=== PATIENT | male | born 1940 | race Caucasian/White ===

== ENCOUNTER 2021-07-04 12:53 | Outpatient (CLI) | payer MEDICARE, OTHER | END 2021-07-04 12:54 | disposition home or self-care (01) | LOC: CSHCT 12:53 | PROVIDERS: ATTEND Internal Medicine | DX: M54.50 Low back pain, unspecified (principal); M47.816 Spondylosis without myelopathy or radiculopathy, lumbar region | CPT/HCPCS: 72131 ==

== ENCOUNTER 2022-07-24 09:46 | Outpatient (CLI) | payer MEDICARE, OTHER | END 2022-07-24 09:47 | disposition home or self-care (01) | LOC: CSHCT 09:46 | PROVIDERS: ATTEND Psychiatry & Neurology Neurology | DX: R25.2 Cramp and spasm (principal); M54.16 Radiculopathy, lumbar region; M47.812 Spondylosis without myelopathy or radiculopathy, cervical region; M48.02 Spinal stenosis, cervical region | CPT/HCPCS: 72125; 72131 ==

== ENCOUNTER 2022-12-08 12:27 | Inpatient (IN) | payer MEDICARE, OTHER ==
[~2022-12-08 12:27] MED LIST: Iopamidol 300 61% 100 ML VIAL FS ONE
[2022-12-08] MEDS ORDERED: Ketorolac Tromethamine 30 MG/ML VIAL ONE (12:59)
[2022-12-08] MEDS ORDERED: Ondansetron PF 4 MG/2 ML Vial ONE (12:59)
[2022-12-08 13:33] LABS: ALT (SGPT) 21 U/L (8-55); AST (SGOT) 19 U/L (5-34); Albumin 4.2 g/dL (3.4-4.8); Alkaline Phosphatase 66 U/L (40-110); Anion Gap 14 mmol/L (10-20); BUN (Urea Nitrogen) 31 mg/dL (8.4-25.7); Bilirubin, Total 0.5 mg/dL (0.2-1.2); Calc. Creatinine Clearance 0 mL/min (70-130); Calcium 8.7 mg/dL (7.8-10.44); Carbon Dioxide 23 mmol/L (23-31); Chloride 107 mmol/L (98-107); Estimated GFR 61; Globulin 2.6 g/dL (2.4-3.5); Glucose 105 mg/dL (83-110); Lipase 41 U/L (8-78); Potassium 4.1 mmol/L (3.5-5.1); Protein, Total 6.8 g/dL (5.8-8.1); Sodium 140 mmol/L (136-145)
[2022-12-08 13:35] LABS: #Eosinphils 0.1 10x3/uL (0.0-0.5); #Monocytes 0.6 10x3/uL (0.0-1.1); #Neutrophils 6.5 10x3/uL (1.5-8.4); %Basophils 0.4 % (0.0-2.0); %Eosinophils 0.9 % (0.0-6.0); %Lymphocytes 10.9 % (18.0-47.0); %Monocytes 7.6 % (0.0-10.0); %Neutrophils 79.7 % (40.0-75.0); Hemoglobin 11.4 g/dL (13.5-17.5); Mean Corpuscular HGB CONC 34.1 g/dL (32.0-36.0); Mean Corpuscular Hemoglobin 33.8 pg (27.0-33.0); Mean Corpuscular Volume 99.1 fl (81.2-95.1); Mean Platelet Volume 9.7 fl (7.4-10.4); Platelet Count 211 10x3/uL (150-450); RBC Distribution Width 13.1 % (11.5-14.5); Red Blood Cell (RBC) Count 3.37 10x6/uL (4.32-5.72); White Blood Cell (WBC) Count 8.1 10x3/uL (3.5-10.5)
[2022-12-08] MEDS ORDERED: Fentanyl 100 MCG/2 ML VIAL ONE (14:40)
[2022-12-08] MEDS ORDERED: Morphine 4 MG/ML VIAL ONE (15:07)
[2022-12-08] MEDS ORDERED: Lidocaine Viscous Sol 2% 15 ml UD Cup ONE (15:23)
[2022-12-08] MEDS ORDERED: Lidocaine 1% MPF 2 ML VIAL ONE (15:23)
[2022-12-08 17:15] VITALS: BMI 23.7
[2022-12-08] MEDS: Lactated Ringer's 1,000 ML IV SCH (17:24)
[2022-12-08] MEDS: Morphine 4 MG/ML VIAL SLOW IVP PRN ×2 (18:33→22:28)
[2022-12-09] MEDS: Lactated Ringer's 1,000 ML IV SCH ×3 (01:24→16:30)
[2022-12-09 05:24] LABS: #Eosinphils 0.1 10x3/uL (0.0-0.5); #Monocytes 0.8 10x3/uL (0.0-1.1); #Neutrophils 3.7 10x3/uL (1.5-8.4); %Basophils 0.4 % (0.0-2.0); %Eosinophils 2.6 % (0.0-6.0); %Lymphocytes 14.3 % (18.0-47.0); %Monocytes 14.9 % (0.0-10.0); %Neutrophils 67.6 % (40.0-75.0); Hemoglobin 10.7 g/dL (13.5-17.5); Mean Corpuscular HGB CONC 34.2 g/dL (32.0-36.0); Mean Corpuscular Hemoglobin 33.5 pg (27.0-33.0); Mean Corpuscular Volume 98.1 fl (81.2-95.1); Mean Platelet Volume 9.9 fl (7.4-10.4); Platelet Count 212 10x3/uL (150-450); RBC Distribution Width 13.2 % (11.5-14.5); Red Blood Cell (RBC) Count 3.19 10x6/uL (4.32-5.72); White Blood Cell (WBC) Count 5.4 10x3/uL (3.5-10.5)
[2022-12-09 05:49] LABS: Anion Gap 12 mmol/L (10-20); BUN (Urea Nitrogen) 31 mg/dL (8.4-25.7); Calc. Creatinine Clearance 59 mL/min (70-130); Calcium 8.4 mg/dL (7.8-10.44); Carbon Dioxide 22 mmol/L (23-31); Chloride 108 mmol/L (98-107); Estimated GFR 68; Glucose 100 mg/dL (83-110); Sodium 138 mmol/L (136-145)
[2022-12-09 07:57] LABS: Magnesium 1.9 mg/dL (1.6-2.6); Phosphorus 2.8 mg/dL (2.3-4.7)
[2022-12-09] MEDS: Morphine 4 MG/ML VIAL SLOW IVP PRN ×2 (10:28→23:25)
[2022-12-09] MEDS: Pantoprazole 40 MG VIAL IVP SCH (10:37)
[2022-12-09] MEDS: Ondansetron PF 4 MG/2 ML Vial IVP PRN ×2 (14:41→23:25)
[2022-12-09] MEDS ORDERED: ALFUZOSIN HCL 10 MG PO SCH (21:00)
[2022-12-09] MEDS: Topiramate 25 MG TAB PO SCH (23:31)
[2022-12-09] MEDS: Amitriptyline HCl 25 MG TAB PO SCH (23:31)
[2022-12-10] MEDS: Lactated Ringer's 1,000 ML IV SCH ×2 (00:05→11:20)
[2022-12-10] MEDS: Morphine 4 MG/ML VIAL SLOW IVP PRN (05:12)
[2022-12-10] MEDS: Ondansetron PF 4 MG/2 ML Vial IVP PRN (05:15)
[2022-12-10 06:10] LABS: Hemoglobin 12.2 g/dL (13.5-17.5); Mean Corpuscular Hemoglobin 33.5 pg (27.0-33.0); Mean Corpuscular Volume 98.6 fl (81.2-95.1); Mean Platelet Volume 10.5 fl (7.4-10.4); Platelet Count 238 10x3/uL (150-450); RBC Distribution Width 13.2 % (11.5-14.5); Red Blood Cell (RBC) Count 3.64 10x6/uL (4.32-5.72); White Blood Cell (WBC) Count 7.5 10x3/uL (3.5-10.5)
[2022-12-10 06:11] LABS: MDiff Complete? YES
[2022-12-10 06:23] LABS: ALT (SGPT) 35 U/L (8-55); AST (SGOT) 24 U/L (5-34); Albumin 4.1 g/dL (3.4-4.8); Alkaline Phosphatase 84 U/L (40-110); Anion Gap 16 mmol/L (10-20); BUN (Urea Nitrogen) 29 mg/dL (8.4-25.7); Bilirubin, Total 0.7 mg/dL (0.2-1.2); Calc. Creatinine Clearance 53 mL/min (70-130); Calcium 9.5 mg/dL (7.8-10.44); Carbon Dioxide 24 mmol/L (23-31); Chloride 107 mmol/L (98-107); Estimated GFR 60; Globulin 2.9 g/dL (2.4-3.5); Glucose 100 mg/dL (83-110); Potassium 4.1 mmol/L (3.5-5.1); Sodium 143 mmol/L (136-145)
[2022-12-10 06:35] LABS: Eosinophils 1 % (0-10); Lymphocytes 32 % (21-51); Monocytes 9 % (0-10); Neutrophil 58 % (42-75)
[2022-12-10 06:36] LABS: Platelet Morphology Comment Appears Adequate
[2022-12-10] MEDS ORDERED: DULoxetine 30 MG CAP PO SCH (09:00)
[2022-12-10] MEDS ORDERED: CEFAZOLIN 2 GM in Sodium Chloride 0.9% 100 ML IVPB SCH (09:15)
[2022-12-10] MEDS ORDERED: CEFAZOLIN 2 GM VIAL ONE (10:00)
[2022-12-10] MEDS ORDERED: Sodium Chloride 0.9% 100 ML ONE (10:00)
[2022-12-10] MEDS ORDERED: Bupivacaine HCl 0.5%/Epinephrine 1:200,000/PF 30 ml Vial ONE (10:56)
[2022-12-10] MEDS ORDERED: Esmolol 100 MG/10 ML VIAL ONE (13:35)
[2022-12-10] MEDS ORDERED: Rocuronium Bromide 10 MG/ML (10ML VIAL) ONE (13:35)
[2022-12-10] MEDS ORDERED: Dexamethasone 4 mg/ml Vial ONE (13:35)
[2022-12-10] MEDS ORDERED: PROPOFOL 20 ML ONE (13:35)
[2022-12-10] MEDS ORDERED: Fentanyl 100 MCG/2 ML VIAL ONE (13:35)
[2022-12-10] MEDS ORDERED: Ondansetron PF 4 MG/2 ML Vial ONE (13:35)
[2022-12-10] MEDS ORDERED: Glycopyrrolate 0.2 MG/ML 5 ML SYRINGE ONE (14:28)
[2022-12-10] MEDS ORDERED: Acetaminophen 325 MG TAB PO PRN (15:39)
[2022-12-10] MEDS ORDERED: HYDROcodone/Acetaminophen 5/325 mg Tablet PO PRN ×2 (15:39)
[2022-12-10] MEDS: Topiramate 25 MG TAB PO SCH ×2 (15:41→20:23)
[2022-12-10] MEDS: DULoxetine 30 MG CAP PO SCH (16:57)
[2022-12-10] MEDS: 1/2 NS w/KCL 20 mEq 1,000 ML IV SCH (17:23)
[2022-12-10] MEDS: Pantoprazole 40 MG VIAL IVP SCH (17:24)
[2022-12-10] MEDS: Amitriptyline HCl 25 MG TAB PO SCH (20:23)
[2022-12-11] MEDS ORDERED: 1/2 NS w/KCL 20 mEq 1,000 ML ONE ×3 (00:12)
[2022-12-11] MEDS: 1/2 NS w/KCL 20 mEq 1,000 ML IV SCH ×2 (00:17→09:40)
[2022-12-11 08:40] LABS: Hemoglobin 9.9 g/dL (13.5-17.5); Mean Corpuscular HGB CONC 32.6 g/dL (32.0-36.0); Mean Corpuscular Hemoglobin 33.8 pg (27.0-33.0); Mean Corpuscular Volume 103.8 fl (81.2-95.1); Mean Platelet Volume 9.5 fl (7.4-10.4); Platelet Count 185 10x3/uL (150-450); RBC Distribution Width 13.1 % (11.5-14.5); Red Blood Cell (RBC) Count 2.93 10x6/uL (4.32-5.72); White Blood Cell (WBC) Count 4.7 10x3/uL (3.5-10.5)
[2022-12-11 08:41] LABS: MDiff Complete? YES
[2022-12-11 08:58] LABS: Lymphocytes 21 % (21-51); Monocytes 11 % (0-10); Neutrophil 68 % (42-75)
[2022-12-11 08:59] LABS: Platelet Morphology Comment Appears Adequate
[2022-12-11 09:00] LABS: ALT (SGPT) 20 U/L (8-55); AST (SGOT) 16 U/L (5-34); Albumin 3.4 g/dL (3.4-4.8); Alkaline Phosphatase 55 U/L (40-110); Anion Gap 14 mmol/L (10-20); BUN (Urea Nitrogen) 30 mg/dL (8.4-25.7); Bilirubin, Total 0.5 mg/dL (0.2-1.2); Calc. Creatinine Clearance 56 mL/min (70-130); Calcium 7.9 mg/dL (7.8-10.44); Carbon Dioxide 22 mmol/L (23-31); Chloride 106 mmol/L (98-107); Estimated GFR 64; Globulin 2.3 g/dL (2.4-3.5); Glucose 96 mg/dL (83-110); Potassium 4.2 mmol/L (3.5-5.1); Protein, Total 5.7 g/dL (5.8-8.1); Sodium 138 mmol/L (136-145)
[2022-12-11 09:04] LABS: Macrocytosis SLIGHT = 6-15 cells (100X) (0-5/hpf)
[2022-12-11] MEDS: DULoxetine 30 MG CAP PO SCH (09:31)
[2022-12-11] MEDS: Topiramate 25 MG TAB PO SCH (09:31)
[2022-12-11] MEDS: Pantoprazole 40 MG VIAL IVP SCH (09:32)
[2022-12-11 15:14] LABS: Bilirubin Neg (Negative); Blood, Urine Negative (Negative); Clarity Clear (Clear); Glucose, Urine (Dipstick) Normal (Negative); Ketone, Urine Negative (Negative); Leukocyte Negative (Negative); Nitrite Negative (Negative); Protein, Urine (Dipstick) Negative (Neg-Trace); Specific Gravity, Urine 1.005 (1.005-1.030); Urobilinogen Normal mg/dL (Less than 2)
[2022-12-11 15:17] VITALS: BP 135/61; TEMP 97.9
[2022-12-11 15:21] LABS: Bacteria/HPF None Seen HPF (None Seen); CAUTI Indications for Culture Urological Procedure; RBC/HPF 0-3 HPF (0-3); Squamous Epithelial 0-3 HPF (0-3); WBC/HPF 0-3 HPF (0-3)
[2022-12-11 15:23] LABS: Urine Culture Reflex Yes Yes
== END 2022-12-11 16:40 | disposition home or self-care (01) | DRG 337 ==
LOC: SUATTDRO 12:27 → CSHERS 12:27 → CSHTELE 15:41
PROVIDERS: ADMIT Family Medicine; ATTEND Internal Medicine
PROC: 0D9670Z Drainage of Stomach with Drainage Device, Via Natural or Artificial Opening (ICD-10-PCS; 2022-12-08)
PROC: 0DNU4ZZ Release Omentum, Percutaneous Endoscopic Approach (ICD-10-PCS; principal; 2022-12-10)
PROC: 5A09357 Assistance with Respiratory Ventilation, Less than 24 Consecutive Hours, Continuous Positive Airway Pressure (ICD-10-PCS; 2022-12-11)
DX: K56.609 Unspecified intestinal obstruction, unspecified as to partial versus complete obstruction (principal); I10 Essential (primary) hypertension; G89.29 Other chronic pain; G62.89 Other specified polyneuropathies; F32.A Depression, unspecified; K66.0 Peritoneal adhesions (postprocedural) (postinfection); R33.9 Retention of urine, unspecified; Z90.49 Acquired absence of other specified parts of digestive tract; Z87.891 Personal history of nicotine dependence; Z88.2 Allergy status to sulfonamides; Z79.899 Other long term (current) drug therapy
CPT/HCPCS: 36415; 71045; 74018; 74019; 74177; 74250; 80048; 80053; 81001; 83690; 83735; 84100; 84484; 85025; 87086; 93005; 94760; 96374; 96375; C9113; J1100; J1650; J1885; J2270; J2405; J2704; J3010; J3475; J3480; J7120; Q9967

== ENCOUNTER 2023-02-27 13:02 | Day surgery (SDC) | payer MEDICARE, OTHER ==
[2023-02-27] MEDS ORDERED: Lidocaine 1% PF 5 ML VIAL ONE (13:14)
[2023-02-27] MEDS ORDERED: Sodium Bicarbonate 2.5 MEQ/5 ML VIAL ONE (13:14)
== END 2023-02-27 15:16 | disposition home or self-care (01) ==
LOC: CSHRAD 13:02
PROVIDERS: ATTEND Neurological Surgery
DX: M47.817 Spondylosis without myelopathy or radiculopathy, lumbosacral region (principal)
CPT/HCPCS: 62304; 72132

== ENCOUNTER 2023-03-01 15:06 | Emergency (ER) | payer MEDICARE, OTHER ==
[2023-03-01 15:37] LABS: #Monocytes 0.2 10x3/uL (0.0-1.1); #Neutrophils 2.1 10x3/uL (1.5-8.4); %Basophils 0.6 % (0.0-2.0); %Eosinophils 1.3 % (0.0-6.0); %Lymphocytes 23.6 % (18.0-47.0); %Monocytes 7.7 % (0.0-10.0); %Neutrophils 66.5 % (40.0-75.0); Hemoglobin 9.4 g/dL (13.5-17.5); Mean Corpuscular HGB CONC 34.3 g/dL (32.0-36.0); Mean Corpuscular Hemoglobin 33.8 pg (27.0-33.0); Mean Corpuscular Volume 98.6 fl (81.2-95.1); Mean Platelet Volume 9.5 fl (7.4-10.4); Platelet Count 202 10x3/uL (150-450); RBC Distribution Width 12.7 % (11.5-14.5); Red Blood Cell (RBC) Count 2.78 10x6/uL (4.32-5.72); White Blood Cell (WBC) Count 3.1 10x3/uL (3.5-10.5)
[2023-03-01 15:42] LABS: ALT (SGPT) 21 U/L (8-55); AST (SGOT) 16 U/L (5-34); Albumin 3.8 g/dL (3.4-4.8); Alkaline Phosphatase 58 U/L (40-110); Anion Gap 13 mmol/L (10-20); BUN (Urea Nitrogen) 44 mg/dL (8.4-25.7); Bilirubin, Total 0.3 mg/dL (0.2-1.2); CK (CPK) 93 U/L (30-200); Calc. Creatinine Clearance 0 mL/min (70-130); Calcium 8.1 mg/dL (7.8-10.44); Carbon Dioxide 16 mmol/L (23-31); Chloride 114 mmol/L (98-107); Estimated GFR 42; Globulin 2.2 g/dL (2.4-3.5); Glucose 110 mg/dL (83-110); Potassium 5.1 mmol/L (3.5-5.1); Sodium 138 mmol/L (136-145)
[2023-03-01] MEDS ORDERED: Boostrix 0.5 ML (Tdap) VIAL (>/=7 yrs of age) ONE (15:54)
[2023-03-01 17:24] LABS: Bilirubin Neg (Negative); Blood, Urine Negative (Negative); Glucose, Urine (Dipstick) Normal (Negative); Ketone, Urine Negative (Negative); Leukocyte Negative (Negative); Nitrite Negative (Negative); Protein, Urine (Dipstick) Negative (Neg-Trace); Urobilinogen Normal mg/dL (Less than 2); pH, Urine 6.5 (5.0-9.0)
[2023-03-01 17:32] LABS: Clarity Clear (Clear)
[2023-03-01 17:40] LABS: Bacteria/HPF None Seen HPF (None Seen); CAUTI Indications for Culture Alt mental st,lethar; RBC/HPF 0-3 HPF (0-3); Squamous Epithelial 0-3 HPF (0-3); Urine Culture Reflex No No; WBC/HPF 0-3 HPF (0-3)
== END 2023-03-01 18:16 | disposition home or self-care (01) ==
LOC: CSHERS 15:06
DX: S51.012A Laceration without foreign body of left elbow, initial encounter (principal); T67.01XA Heatstroke and sunstroke, initial encounter; E86.0 Dehydration; R55 Syncope and collapse; W18.30XA Fall on same level, unspecified, initial encounter; Z87.891 Personal history of nicotine dependence; Z23 Encounter for immunization
CPT/HCPCS: 80053; 81001; 82550; 84484; 85025; 90471; 90715; 93005; 96360; 96361